=== PATIENT | female | born 1955 | race Caucasian/White ===

== ENCOUNTER 2021-11-07 08:29 | Outpatient (CLI) | payer OTHER, SELFPAY ==
--- NOTE | 2021-11-07 08:30 | ECG_ITS ---
Measurements Intervals [place] Rate: 65 P: 19 MS: 189 QRS: -19 QRSD: 96 T: 8 QT: 390 QTc: 407 Interpretive Statements SINUS RHYTHM LOW QRS VOLTAGE IN PRECORDIAL LEADS INCOMPLETE RIGHT BUNDLE BRANCH BLOCK BORDERLINE R WAVE PROGRESSION, ANTERIOR LEADS BASELINE ARTIFACT- I, II, III, AVR, AVL, AVF BORDERLINE ECG Electronically Signed On 11-07-2021 12:09:14 MOLD REPAIRER by Yonis Light D.O.
== END 2021-11-07 08:30 | disposition home or self-care (01) ==
LOC: ANHSURGERY 08:34
PROVIDERS: Visit Provider Surgery Plastic and Reconstructive Surgery
DX: E78.5 Hyperlipidemia, unspecified (principal)
CPT/HCPCS: 93005

== ENCOUNTER 2021-11-10 00:02 | Day surgery (SDC) | payer OTHER, SELFPAY ==
[2021-11-03 15:28] VITALS: BMI 39.0
--- NOTE | 2021-11-03 15:40 | PC.NURSE ---
Report to the Outpatient Waiting Room, entrance under the green pavilion located off [facility], at time 6:00 on date 11/10/21. OR Time: 7:30. - You and your visitor will be asked a series of questions to screen for COVID 19 for your protection. - A mask is required within the hospital. One visitor will be allowed to accompany the patient into the hospital. Patients visitor will be instructed to remain with patient at all times or leave the building. We will allow the visitor to come back to the postoperative area when patient is ready. Preoperative COVID Testing Requirements: No COVID Test needed if: (proof is required; if not received patient will have Rapid Test prior to entry) - Patient has received COVID Vaccine at least 14 days prior to procedure date or - Patient has positive COVID test result within last 90 days of surgery date. COVID Test needed if above criteria is not met Patients may have clear liquids (water, carbonated beverages, clear teas, apple juice) until 3 hours prior to surgery (4:30) with a maximum of 20 ounces. - No food from midnight until time of surgery Take the following medications with a SIP of water the morning of surgery: SERTRALINE Medications to discontinue per physician: VITAMINS Date to take last dose: 11/06/21 Please no make-up, nail chinese, hairspray, perfume, deodorant, or body powder the day of surgery. No jewelry (including any body piercings) or valuables the day of surgery, leave them at home. Please take a shower or bath the night before, or the morning of, surgery with an antibacterial soap. Wear comfortable, loose fitting clothing. Children are encouraged to wear pajamas. - Jewelry must be removed prior to entering the operating room. Rings and piercings that are not removed may be cut off. - The hospital will not accept responsibility for valuables. - Please leave all valuables, including medications, at home the day of surgery. If you are going home after surgery, a licensed furniture mover driver must drive you home. - NO public transportation without another adult. - We recommend that an adult stay with you for 24 hours following discharge. - We also recommend that you do not drive, make important decision, drink alcoholic beverages, or take any drugs that were not prescribed by your health care provider for at least 24 hours after your discharge time. Follow any additional instructions given to you from your surgeon. Telephone instructions given to ERLINDA PETERS and asked if any additional questions and then verbalized understanding. Patient advised to call surgeon office or pre surgery nurse liaison [phone] if any additional questions.
[2021-11-10] VITALS (11 sets, daily range): BP systolic 123–153; BP diastolic 70–88; PULSE 65–82; RESP 11–16; TEMP 36.1–36.2; O2SAT 94–100
[2021-11-10] MEDS: LACTATED RINGERS 1,000 ML 30 ML IV CONT ×2 (06:45→11:53)
[2021-11-10 06:48] LABS: Urine Cotinine NEGATIVE
--- NOTE | 2021-11-10 06:59 | P.PNAN_ITS ---
Anes - Initial Pre Proc Eval Procedure: Operation Date: 11/10/21 07:30 Proposed Procedures p Bilateral Breast Reduction with Lateral Breast Liposuction - Rodri Petty MD Date/Time: 11/10/21 06:59 Surgeon: Rodri Petty MD Pre Op Diagnosis: macromastia,localized adiposity Patient Data Age: 66 Gender: F Height: 1.52 m Weight: 90.72 kg Allergies Allergy/AdvReac Type Severity Reaction Status Date / Time No Known Allergies Allergy Verified 11/03/21 15:27 Home Medications Medication Instructions Recorded Confirmed Type cholecalciferol (vitamin D3) 50 50 mcg PO DAILY 04/04/21 11/03/21 History mcg (2,000 unit) tablet denosumab 60 mg/mL subcutaneous 60 mg SUBCUT [id number] 04/04/21 11/03/21 History syringe meloxicam 15 mg tablet 15 mg PO DAILY tablet 04/04/21 11/03/21 History pravastatin 20 mg tablet 20 mg PO DAILY 04/04/21 11/03/21 History sertraline 50 mg tablet 50 mg PO DAILY 04/04/21 11/03/21 History docusate sodium 100 mg capsule 100 mg PO DAILY #14 cap 10/19/21 11/03/21 Rx hydrocodone 5 mg-acetaminophen 325 1 tablet PO Q6H PRN #30 tablet 10/19/21 11/03/21 Rx mg tablet ondansetron HCl 4 mg tablet 4 mg PO Q8H #21 tablet 10/19/21 11/03/21 Rx Laboratory Tests 11/10/21 06:23 Cotinine Negative Patient hx anesthesia problems: none Family hx anesthesia problems: none Results Review: All pre-operative results and documents have been reviewed as part of the pre-operative evaluation. [facility] Past Medical History Medical History Adult idiopathic generalized osteoporosis Anxiety Arthritis Chronic back pain High cholesterol Family History Family History Mother Brain tumor Father Kidney failure Other Breast cancer Social History Social History Smoking status: Unknown if ever smoked Alcohol intake: current Drinks per week: 2 Substance use: never Substance use type: does not use Living arrangements: alone Spiritual care concerns: No Anes - Eval Final PreProcedure Day of Procedure 11/10/21 06:59 Patient weight: morbidly obese Heart: regular rate and rhythm Lungs: clear to auscultation Airway: Mallampati scale class II Neurological: alert and oriented Last oral intake: >/= 8 hours ASA classification: III Emergent: no Anesthetic plan: proceed Anesthesia type and monitoring: general LMA and standard monitoring Results Review: All pre-operative results and documents have been reviewed as part of the pre-operative evaluation. Informed Consent: The patient's anesthetic plan and its attendant risks and benefits were discussed with the patient/family/POA. Questions were solicited and answers provided to the satisfaction of the patient/family/POA.
[2021-11-10] MEDS: TRANEXAMIC ACID 1,000MG/ISO100 1,000 MG/100 ML BAG 200 MG IVPB (07:00)
--- NOTE | 2021-11-10 07:00 | WPDHPUPDATE1 ---
History and Physical Update Update Date/Time: 11/10/21 07:00 History and Physical has been reviewed, including an updated exam of the patient. There are NO changes in the patient's condition. Risks, benefits, and alternatives have been discussed and questions answered. Patient agrees to proceed with procedure.
[2021-11-10] MEDS: ceFAZolin 2 GM/D5W 50 ML 2 GM/50 ML BAG IVPB (07:32)
[2021-11-10] MEDS: LACTATED RINGERS IRRIG 1,000 ML, LIDOCAINE HCL 1% LOCAL INJ 50 ML, EPINEPHrine HCL INJ ... INFILTRATE (07:55)
--- NOTE | 2021-11-10 10:17 | W.PM.PROC2 ---
Procedure Note - Detailed Date of Procedure 11/10/21 Pre-op Diagnosis macromastia,localized adiposity Post-op Diagnosis Same Procedure Performed 1. Bilateral reduction mammaplasty 2. Suction lipectomy lateral chest wall Surgeon Rodri Petty MD Anesthesia General Findings Inverted T Superior medial pedicle Tissue removed: Right - 1293 grams Left - 1271 grams Lipoaspirate: 900cc Description of Procedure She is here today for bilateral breast reduction / suction lipectomy. Previously and again today the risks, benefits, alternatives were discussed in extensive detail. I wanted her to be very realistic about the risks involved as well as expectations. We discussed aftercare and what to monitor for. She understands we can never guarantee final breast size and there will always be asymmetry. I was very upfront and honest about the risks of sensation change and even nipple loss (). We had discussed free nipple graft; however, after marking we were able to proceed without a free nipple graft. Made sure answered all of her questions to her satisfaction today and consent was obtained. She was marked in the preoperative holding area with their verification. The patient was taken to the operating room placed supine on the operating table. Anesthesia was provided by anesthesiology. She was prepped and draped in a standard sterile fashion. A surgical time-out was taken. Stab incisions were made and I tumessed with a tumescent solution. I marked out the nipple-areolar complex at 42 mm. I then de-epithelialized the pedicle. The pedicle was well left well more than 2 cm in thickness. I then removed the inferior portion of the breast as well as the central keel to get shape based on preoperative planning. At this point copiously irrigated with saline solution and verified a strict hemostasis. I reapproximated the pillars using a 2-0 PDS. I tailor tacked the breast into place with darin. She was placed in a sitting position. I verified the nipple-areolar complex position based on preoperative markings, intraoperative measurements, and observation which were in full agreement. This nipple-areolar complex was marked at 42 mm in size. Suction lipectomy of latera chest wall / breast was completed based on S.A.F.E. technique to a rolling pinch test based based on pre-operative planning. See volumes above. I then placed supine and de-epithelialized this. Nipple-areolar complex was inset with 3-0 Monocryl. I closed IMF deep with 1 strattafix. I closed the vertical incision with 3-0 Monocryl in the IMF with 3-0 stratafix. Then everything was closed using a running subcuticular 4-0 Monocryl followed by Steri-Strips. A dressing was placed followed by surgical bra. Patient was awoke and taken to PACU without difficulty. All instrument sponge counts were correct at the end of the case. Estimated Blood Loss 50 Drains No Packing No Pathology Yes (Bilateral breast tissue) Complications No immediate complications Condition Stable Disposition PACU
[2021-11-10] MEDS: fentaNYL CITRATE INJ (*CRX) 100 MCG/2 ML VIAL 25 MCG IV PUSH ×8 (11:00→12:44)
--- NOTE | 2021-11-10 11:45 | SUR.PHASEI ---
PT SLEEPING IN INTERVALS. WAKENS SELF AND C/O PAIN AT 8/10. FENTANYL GIVEN PRN
--- NOTE | 2021-11-10 12:06 | SUR.PHASEI ---
PT AWAKE AND ALERT. STATES PAIN A LOT BETTER NOW AT 6/10 AND TOLERABLE. READY TO MOVE TO [facility]
[2021-11-10] MEDS: ONDANSETRON INJ 4 MG/2 ML VIAL IV PUSH (12:29)
[2021-11-10] MEDS: oxyCODONE HCL (*CRX) 5 MG TAB IR PO (12:44)
== END 2021-11-10 13:40 | disposition home or self-care (01) ==
PROVIDERS: Visit Provider Surgery Plastic and Reconstructive Surgery
PROC: 0HBV0ZZ Excision of Bilateral Breast, Open Approach (ICD-10-PCS; CPT 19318; principal; 2021-11-10 07:30)
DX: N62 Hypertrophy of breast (principal); E65 Localized adiposity; M54.9 Dorsalgia, unspecified; M54.2 Cervicalgia; M25.511 Pain in right shoulder; M25.512 Pain in left shoulder; G89.29 Other chronic pain; L98.9 Disorder of the skin and subcutaneous tissue, unspecified; L30.4 Erythema intertrigo; N64.4 Mastodynia; E78.00 Pure hypercholesterolemia, unspecified; F41.9 Anxiety disorder, unspecified; M81.0 Age-related osteoporosis without current pathological fracture; E66.01 Morbid (severe) obesity due to excess calories; Z68.39 Body mass index [BMI] 39.0-39.9, adult
CPT/HCPCS: 19318; 80307; 88305; A9270; J0171; J0690; J1170; J2250; J2405; J2704; J3010; J7120

== ENCOUNTER 2021-11-30 16:08 | Outpatient (CLI) | payer OTHER, SELFPAY ==
[2021-11-30 16:59] LABS: Hematocrit 41.5 % (37.0-47.0); Hemoglobin 13.5 g/dL (12.0-15.0); Mean Corpuscular HGB Conc 32.5 g/dl (32-36); Mean Corpuscular Hemoglobin 29.3 pg (26-34); Mean Corpuscular Volume 90.2 fl (80-100); Mean Platelet Volume 10.1 fl (7.4-10.4); Platelet Count Result 379 k/mm3 (150-375); White Blood Count 8.9 K/mm3 (4.5-10.0)
[2021-11-30 17:25] LABS: Anion Gap 8 mmol/L (8-16); Blood Urea Nitrogen 25 mg/dL (7-17); Carbon Dioxide 25 mmol/L (22-30); Chloride 105 mmol/L (98-107); Estimated Glomerular Filt Rate 56; Glucose 112 mg/dL (65-110); Potassium 3.9 mmol/L (3.4-5.0); Sodium 138 mmol/L (137-145)
== END 2021-11-30 16:09 | disposition home or self-care (01) ==
LOC: ANHLAB 16:09
PROVIDERS: Visit Provider Surgery Plastic and Reconstructive Surgery
DX: R53.83 Other fatigue (principal)
CPT/HCPCS: 36415; 80048; 85027